=== PATIENT | male | born 1970 | race Caucasian/White ===

== ENCOUNTER 2021-09-03 14:22 | Emergency (ER) | payer MEDICAID ==
[~2021-09-03] VITALS: Ht 188 cm; Wt 110.0 kg
[2021-09-03 16:00] LABS: BASOPHILS % (AUTO) 0.3 % (0-1); EOSINOPHILS # (AUTO) 0.4 X10'3 (0-0.9); EOSINOPHILS % (AUTO) 2.8 % (0-6); HEMATOCRIT 40.2 % (42.0-52.0); HEMOGLOBIN 13.8 g/dl (14.0-17.9); LYMPHOCYTES # (AUTO) 2.1 X10'3 (1.1-4.8); LYMPHOCYTES % (AUTO) 16.9 % (21-51); MEAN CORPUSCULAR HGB CONC 34.4 g/dL (33.0-36.5); MEAN PLATELET VOLUME 7.7 FL (7.4-10.4); MONOCYTES % (AUTO) 8.1 % (2-12); NEUTROPHILS % (AUTO) 71.9 % (42-75); PLATELET COUNT 293 X10'3 (140-440); RED BLOOD COUNT 4.61 X10'6 (4.70-6.10); RED CELL DISTRIBUTION WIDTH 12.9 % (11.5-14.5); WHITE BLOOD COUNT 12.5 X10'3 (4.5-11.0)
[2021-09-03 16:01] LABS: ALBUMIN 3.5 G/DL (3.4-5.0); ANION GAP 11 (8-16); BLOOD UREA NITROGEN 12 MG/DL (7-18); BUN/CREATININE RATIO 9.2 (5.4-32.0); CALCIUM 9.2 MG/DL (8.5-10.1); CHLORIDE 106 MMOL/L (99-107); GLUCOSE 129 MG/DL (70-104); POTASSIUM 3.7 MMOL/L (3.5-5.1); SODIUM 145 MMOL/L (135-145); TOTAL CARBON DIOXIDE 28.4 MMOL/L (24-32); eGFR 58 ML/MIN
[2021-09-03 16:15] LABS: CLARITY,URINE CLEAR (Clear); COLOR,URINE YELLOW (Yellow); GLUCOSE, URINE NEGATIVE (Neg); KETONES,URINE TRACE mg/dl (Neg); LEUKOCYTE ESTERASE ,URINE NEGATIVE (Neg); NITRITES, URINE NEGATIVE (Neg); OCCULT BLOOD,URINE SMALL (Neg); PROTEIN,URINE NEGATIVE (Neg); UA COLLECTION TYPE NON-SPECIFIED; UROBILINOGEN,URINE 0.2 E.U/dL (0.2-1.0)
[2021-09-03 16:19] LABS: SQUAMOUS EPITHELIAL CELL,UR FEW /LPF (FEW)
[2021-09-03 16:20] LABS: BACTERIA,URINE FEW /HPF (Neg); RBC,URINE 0-2 /HPF (0-2); WBC,URINE 0-4 /HPF (0-4)
[2021-09-03] MEDS ORDERED: iohexol 300mg/ml 100ml inj. ONE (16:22)
[2021-09-03] MEDS ORDERED: LIDOcaine 1% W/epiNEPHrine 1:200,000 10ml vial IJ ONE (21:45)
[2021-09-03] MEDS ORDERED: [UNRECOGNIZED DRUG - CODE] PO (22:22)
[2021-09-03] MEDS ORDERED: clindamycin 150mg capsule PO ONE (22:25)
[2021-09-03] MEDS ORDERED: LIDOcaine 1% w/epiNEPHrine 1:200,000 30ml vial IJ ONE (22:45)
[2021-09-03 23:32] VITALS: BP 150/86
[2021-09-04] MEDS ORDERED: piperacillin/tazo 4.5gm/100ml 100 ML IV SCH (08:00)
== END 2021-09-03 23:35 | disposition home or self-care (01) ==
LOC: ER 14:23
DX: N50.89 Other specified disorders of the male genital organs (principal); N49.2 Inflammatory disorders of scrotum; K59.00 Constipation, unspecified
CPT/HCPCS: 36415; 74177; 80048; 81001; 83605; 85025; 99285; Q9967

== ENCOUNTER 2021-10-02 10:58 | Emergency (ER) | payer MEDICAID ==
[~2021-10-02] VITALS: Ht 188 cm; Wt 100.0 kg
[2021-10-02 11:45] VITALS: BP 140/98
[2021-10-02] MEDS ORDERED: AMOX-117 PO (13:53)
[2021-10-02] MEDS ORDERED: PRED20TA PO (13:53)
[2021-10-02] MEDS ORDERED: ALBU6.7H9 INH (13:53)
[2021-10-02] MEDS ORDERED: ipratropium/albuterol 3ml nebule NEB ONE (14:40)
[2021-10-02] MEDS ORDERED: predniSONE 20 mg tablet PO ONE (14:40)
== END 2021-10-02 14:58 | disposition home or self-care (01) ==
LOC: ER 10:58
DX: J20.9 Acute bronchitis, unspecified (principal); Z20.822 Contact with and (suspected) exposure to COVID-19; F17.200 Nicotine dependence, unspecified, uncomplicated; Z79.2 Long term (current) use of antibiotics; Z79.899 Other long term (current) drug therapy; Z88.8 Allergy status to other drugs, medicaments and biological substances; Z72.89 Other problems related to lifestyle
CPT/HCPCS: 71045; 87635; 94640; 99284; C9803; 94760

== ENCOUNTER 2025-02-17 06:31 | Emergency (ER) | payer MEDICAID ==
[~2025-02-17] VITALS: Ht 188 cm; Wt 96.0 kg
[~2025-02-17 06:31] MED LIST: ALBU6.7H14 INH
[2025-02-17] MEDS ORDERED: albuterol 2.5 MG/3 ML nebule CONTNEB PRN (07:05)
[2025-02-17] MEDS: ipratropium 0.5 MG/2.5ML nebule IH ONE (07:05)
[2025-02-17 07:31] LABS: BASOPHILS % (AUTO) 0.1 % (0-1); EOSINOPHILS # (AUTO) 0.3 X10'3 (0-0.9); EOSINOPHILS % (AUTO) 2.5 % (0-6); HEMATOCRIT 46.1 % (42.0-52.0); HEMOGLOBIN 15.1 g/dl (14.0-17.9); LYMPHOCYTES # (AUTO) 2.9 X10'3 (1.1-4.8); LYMPHOCYTES % (AUTO) 22.7 % (21-51); MEAN CORPUSCULAR HEMOGLOBIN 29.1 PG (27.0-31.0); MEAN CORPUSCULAR HGB CONC 32.7 g/dL (33.0-36.5); MONOCYTES # (AUTO) 1.3 X10'3 (0-0.9); MONOCYTES % (AUTO) 9.8 % (2-12); NEUTROPHILS # (AUTO) 8.3 X10'3 (1.8-7.7); NEUTROPHILS % (AUTO) 64.9 % (42-75); PLATELET COUNT 298 X10'3 (140-440); RED BLOOD COUNT 5.18 X10'6 (4.70-6.10); RED CELL DISTRIBUTION WIDTH 13.8 % (11.5-14.5); WHITE BLOOD COUNT 12.8 X10'3 (4.5-11.0)
[2025-02-17 07:42] LABS: ALANINE AMINOTRANSFERASE 30 U/L (12-78); ALBUMIN 3.7 G/DL (3.4-5.0); ALBUMIN/GLOBULIN RATIO 0.9 (1.1-1.5); ALKALINE PHOSPHATASE 85 IU/L (46-116); ANION GAP 10 (8-16); ASPARTATE AMINO TRANSFERASE 19 U/L (10-37); BILIRUBIN,TOTAL 0.5 MG/DL (0.1-1.0); BLOOD UREA NITROGEN 12 MG/DL (7-18); BUN/CREATININE RATIO 10.6 (10.0-20.0); CALCIUM 8.8 MG/DL (8.5-10.1); CHLORIDE 106 MMOL/L (99-107); CREATININE 1.13 MG/DL (0.60-1.10); GLUCOSE 105 MG/DL (70-104); POTASSIUM 3.8 MMOL/L (3.5-5.1); SODIUM 142 MMOL/L (135-145); TOTAL CARBON DIOXIDE 26.4 MMOL/L (24-32); TOTAL PROTEIN 7.8 G/DL (6.4-8.2); eCRCL 87 ML/MIN; eGFR 68 ML/MIN
[2025-02-17] MEDS: magnesium sulf-water 2g/50mL 50 ML IV ONE (07:42)
[2025-02-17 09:02] VITALS: TEMP 98.6
[2025-02-17] MEDS ORDERED: AZIT-164 PO (09:20)
[2025-02-17] MEDS ORDERED: ALBU8HFA INH (09:20)
[2025-02-17 10:30] VITALS: BP 140/84; PULSE 81; RESP 18; O2SAT 96
== END 2025-02-17 10:31 | disposition home or self-care (01) ==
LOC: ER 06:32
DX: J40 Bronchitis, not specified as acute or chronic (principal); J18.9 Pneumonia, unspecified organism; Z72.89 Other problems related to lifestyle; Z79.899 Other long term (current) drug therapy
CPT/HCPCS: 36415; 71045; 80053; 85025; 93005; 96365; 96366; 99285